=== PATIENT | male | born 1970 | race Caucasian/White ===

== ENCOUNTER 2020-04-07 07:06 | Outpatient (REF) | payer OTHER, SELFPAY ==
[2020-04-07 10:54] LABS: MANUAL DIFF FLAG NO
[2020-04-07 10:59] LABS: Basophils Absolute Auto 0.1 X10*3/uL (0.0-0.2); Basophils Percent Auto 0.9 % (0-2); Eosinophils Absolute Auto 0.2 X10*3/uL (0.0-0.4); Eosinophils Percent Auto 2.7 % (0-4); Hematocrit 47.9 % (42-52); Hemoglobin 15.8 g/dl (14.0-18.0); Imm Gran Abs Auto 0.02 X10*3/uL (0.00-0.03); Imm Gran Pct Auto 0.3 % (0.0-0.4); Lymphocytes Absolute Auto 1.6 X10*3/uL (1.2-4.9); Mean Corpuscular Hemoglobin 31.6 pg (27.0-33.0); Mean Corpuscular Volume 95.8 fL (80-98); Mean Platelet Volume 11.7 fL (9.4-12.4); Monocytes Absolute Auto 0.7 X10*3/uL (0.1-1.2); Monocytes Percent Auto 8.9 % (2-11); Neutrophils Absolute Auto 4.8 X10*3/uL (2.0-8.3); Neutrophils Percent Auto 65.2 % (45-73); Platelet Count 228 X10*3/uL (160-400); Red Cell Distribution Width 12.5 % (11.0-16.0); White Blood Count 7.4 X10*3/uL (4.8-10.8)
[2020-04-07 11:33] LABS: Troponin-I High Sensitivity < 3.5 ng/L (<3.5-35.0)
[2020-04-07 13:03] LABS: Alanine Aminotransferase 99 U/L (0-40); Albumin Level 4.6 g/dL (3.5-5.0); Alkaline Phosphatase 49 U/L (39-117); Anion Gap 16 (12-20); Aspartate Amino Transferase 41 U/L (5-37); Bilirubin Total 0.4 mg/dL (0.0-1.0); Blood Urea Nitrogen 19 mg/dL (9-16); Calcium 9.8 mg/dL (8.4-10.2); Carbon Dioxide 26 mmol/L (22-29); Chloride 104 mmol/L (96-108); Cholesterol 269 mg/dL; Estimated Glomerular Filt Rate > 60; Glucose Fasting 111 mg/dL (60-99); HDL Cholesterol 33 mg/dL; LDL Cholesterol Calculated 162 mg/dl; Potassium 4.9 mmol/l (3.3-5.1); Sodium 141 mmol/L (135-145); Total Protein 7.6 g/dL (6.5-8.0); Triglycerides 372 mg/dL
[2020-04-07 13:23] LABS: TSH reflex Free T4 1.63 mIU/mL (0.32-4.0)
== END 2020-04-07 07:07 | disposition home or self-care (01) ==
LOC: HO.WFDLDS 07:06
PROVIDERS: PCP Family Medicine; Visit Provider Family Medicine
DX: I10 Essential (primary) hypertension (principal); Z00.00 Encounter for general adult medical examination without abnormal findings
CPT/HCPCS: 36415; 80053; 80061; 84443; 84484; 85025

== ENCOUNTER → 2020-04-26 07:50 | Outpatient (REF) | payer OTHER, SELFPAY ==
--- NOTE | 2020-04-26 07:53 | CA_ITS ---
Acquisition Time: 2020-04-26 09:05:47 Total Exercise Time: 00:09:19 Test Indications: Screening for CAD Medications: ATENOLOL AMLODIPINE Protocol: DEVORA Max HR: 139 BPM 81% of Pred: 170 BPM Max BP: 174/078 mmHG Max Work Load: 10.6 METS Exercise stress test using Devora protocol, total of 9 min 19 sec. METS 10.6, TAPHR up to 81 % . HR attenuated as pt took betablocker this morning. Tolerated well, denies any anginal sx. EKG without any arrhythmias, no ischemic changes, however suboptimal test d/t HR attenuated by betablocker. Strong family history of HD. Brother had CAD with stents at age 46. Pt's father had valve replaced and of [place] 18 years ago. Normotensive response to exercise. Test reviewed with Dr. Spears. Referred By: Markos Wilkinson Overread By: Bert Wilburn
== END ==
LOC: HO.CARD 07:50
PROVIDERS: PCP Family Medicine; Visit Provider Family Medicine
DX: R07.9 Chest pain, unspecified (principal); Z82.49 Family history of ischemic heart disease and other diseases of the circulatory system
CPT/HCPCS: 93017

== ENCOUNTER → 2020-05-19 13:52 | Outpatient (BNVA) | payer OTHER, SELFPAY | PROVIDERS: PCP Family Medicine; Visit Provider Nurse Practitioner Family | DX: Z12.11 Encounter for screening for malignant neoplasm of colon (principal) | CPT/HCPCS: Q3014 ==

== ENCOUNTER → 2020-06-30 09:05 | Outpatient (BNVA) | payer OTHER, SELFPAY | PROVIDERS: PCP Family Medicine; Visit Provider Internal Medicine Cardiovascular Disease | DX: Z01.810 Encounter for preprocedural cardiovascular examination (principal); R07.9 Chest pain, unspecified; I10 Essential (primary) hypertension | CPT/HCPCS: 93005; 99202 ==

== ENCOUNTER 2020-07-20 06:11 | Day surgery (SDC) | payer OTHER, SELFPAY ==
[2020-07-13 14:54] VITALS: BMI 36.9
--- NOTE | 2020-07-19 09:28 | HO.ANESPROP2 ---
Documented by User: Joann Locke 07/19/20 09:33 HPI - Anesthesia Eval Consult details Narrative: 50yo M for Colonoscopy Cardiac cleared at low to intermed (Echo pending but ok to proceed with colonoscopy) [facility] Active Problems Active Problems: All Active Problems (Updated 07/13/20 @ 14:52 by Pamela Arevalo) Hypertension (Acute) Laboratory examination ordered as part of a routine general medical examination (Acute) FHx: early [place] (Acute) Headache (Acute) Essential hypertension (Acute) Chest pain (Acute) Mixed hyperlipidemia (Acute) Elevated liver transaminase level (Acute) Pre-diabetes (Acute) Screening for colon cancer (Acute) Screening for prostate cancer (Acute) Adult general medical exam (Acute) Abnormal stress test (Acute) Preoperative cardiovascular examination (Acute) Past Medical History Medical History Chest pain Essential hypertension Hx of concussion Hypertension Mild heartburn Mixed hyperlipidemia Family History Family History Father History of heart attack Mother Hx of breast cancer Brother Hx of skin cancer, basal cell Surgical History Surgical History H/O adenoidectomy Social History Social History Alcohol intake: current Alcohol intake frequency: a few times a week Alcohol type: beer and wine Smoking Status: Former smoker Smoking Quit Date: 1999 Use of substances other than those prescribed or required for medical reasons: No Advance Directives: No Advance Directives Information Provided: No Advance Directives on File: No Meds Allergies Allergy/AdvReac Type Severity Reaction Status Date / Time No Known Allergies Allergy Verified 03/31/20 16:33 Home Medications Medication Instructions Recorded Confirmed Last Taken Type aspirin 81 mg tablet,delayed 81 mg PO DAILY 03/31/20 07/20/20 07/19/20 21:00 History release atenolol 25 mg tablet 25 mg PO DAILY tab 06/30/20 07/13/20 Unknown History calcium carbonate-mag hydroxid 2 tab PO Q6H PRN 07/13/20 07/13/20 Unknown History [Rolaids] Exam Exam Date and Time: July 19, 2020927 Height,Weight and Vital Signs: Height 6 ft 1 in Weight 127.006 kg Pertinent Lab Results Pertinent Lab Results: Laboratory Tests 04/07/20 04/07/20 07:20 07:20 WBC 7.4 Hgb 15.8 Hct 47.9 Plt Count 228 Sodium 141 Potassium 4.9 Chloride 104 Carbon Dioxide 26 BUN 19 H Creatinine 1.12 Narrative Narrative: Exercise Stress Test Protocol: AZAEL Max HR: 139 BPM 81% of Pred: 170 BPM Max BP: 174/078 mmHG Max Work Load: 10.6 METS Exercise stress test using Azael protocol, total of 9 min 19 sec. METS 10.6, TAPHR up to 81 % . HR attenuated as pt took betablocker this morning. Tolerated well, denies any anginal sx. EKG without any arrhythmias, no ischemic changes, however suboptimal test d/t HR attenuated by betablocker. Strong family history of HD. Brother had CAD with stents at age 46. Pt's father had valve replaced and of [place] 18 years ago. Normotensive response to exercise. Test reviewed with Dr. Spears. EKG 06/2020 NSR 61/min, incomplete RBBB, QTc 418 msec Assessment and Plan Assessment Anesthesia Assessment: Chart Reviewed Documented by User: Edgard Chi 07/20/20 07:01 [facility] Past Medical History Medical History Chest pain Essential hypertension Hx of concussion Hypertension Mild heartburn Mixed hyperlipidemia Family History Family History Father History of heart attack Mother Hx of breast cancer Brother Hx of skin cancer, basal cell Surgical History Surgical History H/O adenoidectomy Social History Social History Alcohol intake: current Alcohol intake frequency: a few times a week Alcohol type: beer and wine Smoking Status: Former smoker Smoking Quit Date: 1999 Use of substances other than those prescribed or required for medical reasons: No Advance Directives: No Advance Directives Information Provided: No Advance Directives on File: No Meds Allergies Allergy/AdvReac Type Severity Reaction Status Date / Time No Known Allergies Allergy Verified 03/31/20 16:33 Home Medications Medication Instructions Recorded Confirmed Last Taken Type aspirin 81 mg tablet,delayed 81 mg PO DAILY 03/31/20 07/20/20 07/19/20 21:00 History release atenolol 25 mg tablet 25 mg PO DAILY tab 06/30/20 07/13/20 Unknown History calcium carbonate-mag hydroxid 2 tab PO Q6H PRN 07/13/20 07/13/20 Unknown History [Rolaids] Exam Airway Mallampati Class: III TM Dist: >3cm Neck ROM: Full Loose/Missing/Broken Teeth: No Heart: rrr+[id number] Lungs: cta b/l Assessment and Plan Assessment Anesthesia Assessment: Anesthesia Plan Discussed, PAT Visit and Chart Reviewed Final Anesthetic Review NPO: Yes ASA Class: II Final Preanesthetic Review: No Changes in Pt Med Stat, Meds/Allgs Chart Reviewed, Consent Obtained/Reviewed and Anes Risks/Benef Reviewed Patient Risk: Low Procedure Risk: Low Assessment/Block/Sedation in SS: Assess/Block/Sedation-SS Anesthetic Plan Anesthetic Plan: MAC: and Agree w/ Assess. and Plan Disposition: Standard PACU
[2020-07-20 06:43] VITALS: BP 141/97; PULSE 69; RESP 16; TEMP 36.3; O2SAT 97
[2020-07-20] MEDS: Lactated Ringers 1,000 ML 100 ML IVCONT (07:37)
--- NOTE | 2020-07-20 07:47 | MHC.SHP ---
Pre-Procedural Eval Section B Chief Complaint: screening Details of Present Illness: Colon cancer screening Hypertension recent eval cardiology for atypical chest pain Relevant Family History (Specify if Yes): No Relevant Social History: None Present Medications: see Short Stay Collaborative assessment Medical History: Significant History (Hypertension, Obesity) History of Previous Operations: No relevant previous surgery Allergies: Allergies Allergy/AdvReac Type Severity Reaction Status Date / Time No Known Allergies Allergy Verified 03/31/20 16:33 Review of Systems Sugical H&P ROS: Negative: Constitution, Respiratory, Gastrointestinal and Musculoskeletal and Yes, Specify: Cardiovascular Exam Surgical H&P Exam: Normal: HEENT, Normal: Heart, Normal: Extremities and Normal: Abdomen Plan I have reviewed the history and physical and performed a pertinent physical examination on my patient. No changes have occurred unless specified.yes
--- NOTE | 2020-07-20 08:29 | PM.OP ---
Brief Operative Note Date of Service: 07/20/20 Pre-op diagnosis: Colon cancer screening --non high risk Post-op diagnosis: other (Diverticulosis) Procedure: Colonoscopy Implants: NONE Surgeon: Betsy Degroot MD Anesthesia: MAC (CHARLES Cruz Saviri, MD) Estimated blood loss (mL): 0 Pathology: none sent Condition: stable Disposition: PACU
[2020-07-20 08:31] VITALS: BP 119/81; PULSE 66; RESP 16; TEMP 36.7; O2SAT 98
[2020-07-20 08:46] VITALS: BP 120/88; PULSE 68; RESP 16; TEMP 36.7; O2SAT 96
--- NOTE | 2020-07-20 15:56 | W.PM.OPN ---
Operative Note Operative Note Date of Service: 07/20/20 Narrative: Pre-op diagnosis: Colon cancer screening --non high risk Post-op diagnosis: other (Diverticulosis) Procedure: Colonoscopy Implants: NONE Surgeon: Betsy Degroot MD Anesthesia: MAC (Cuff,CHARLES, MD Arti) FINDINGS: DANDRE: Prostate normal, sphincter tone adequate Adult slim colonoscope was introduced without difficulty advanced through sigmoid colon with some Diverticulosis noted. In the early descending colon, noted a 2-3mm obizm-[id number]-[id number] with cold biopsy forceps. Scope continued to be advanced. Once in the midtransverse colon, gentle extrinsic abdominal pressure was applied and scope easily entered ascending colon and then the cecum. Appendiceal orifice and ileocecal valve were well seen. Slow withdrawal of the scope, good rotational views no additional lesions were seen. ARV was clear. Estimated blood loss (mL): 0 Pathology: none sent Condition: stable Disposition: PACU PLAN: Repeat colon cancer screening will be 5 years with TA.
== END 2020-07-20 09:19 | disposition home or self-care (01) ==
PROVIDERS: PCP Family Medicine; Visit Provider Internal Medicine Gastroenterology
PROC: 0DJD8ZZ Inspection of Lower Intestinal Tract, Via Natural or Artificial Opening Endoscopic (ICD-10-PCS; CPT 45378; principal; 2020-07-20 07:30)
DX: Z12.11 Encounter for screening for malignant neoplasm of colon (principal); K63.5 Polyp of colon; K57.30 Diverticulosis of large intestine without perforation or abscess without bleeding; I10 Essential (primary) hypertension; Z79.82 Long term (current) use of aspirin; Z79.899 Other long term (current) drug therapy; Z82.49 Family history of ischemic heart disease and other diseases of the circulatory system; Z87.891 Personal history of nicotine dependence
CPT/HCPCS: 45380

== ENCOUNTER → 2020-08-06 10:13 | Outpatient (REF) | payer SELFPAY ==
--- NOTE | 2020-08-06 10:17 | CA_ITS ---
Transthoracic Echocardiogram Patient (Last, First, Middle): Darrius Catherine, Gender: Male Date of : 1970 Age: 50 Procedure Date: 08/06/2020 Procedure Type: Transthoracic Echocardiogram Location: OP Height: 185.42 cm Weight: 127.01 kg BSA: 2.48 m2 Heart Rate: bpm BP: 145 / 90 mmHg Manufacturing Development Engineer: Referring MD: Chris Avilez MD Symptoms: I10 - Essential (primary) hypertension Study Quality: Good ECG Rhythm: Sinus Conclusions: - The left ventricular systolic function is normal. The visually estimated ejection fraction is between 65-70%. - Mild basal septal hypertrophy. - No obvious valvular pathology seen on this study. Findings Left Ventricle Normal left ventricular cavity size. There is normal left ventricular wall thickness. The left ventricular systolic function is normal. The visually estimated ejection fraction is between 65-70%. There is no evidence of regional wall motion abnormalities. Mild basal septal hypertrophy. Right Ventricle Normal right ventricular cavity size and systolic function. Atria The left atrium is normal in size. The right atrium is normal in size. Aortic Valve There is a normal trileaflet aortic valve. There is no aortic valve stenosis. There is no aortic valve regurgitation. Mitral Valve The mitral valve appears normal. There is trace mitral valve regurgitation. There is no mitral valve stenosis. Pulmonic Valve The pulmonic valve was not well visualized. Tricuspid Valve Normal tricuspid valve structure. There is trace tricuspid valve regurgitation. The pulmonary artery systolic pressure is normal. Great Vessels The aortic annulus, sinuses of valsalva, asc aorta, and aortic arch are normal in size. Venous The inferior vena cava is normal in size and collapses greater than 50% with inspiration. Pericardium/Pleural There is no evidence of pericardial effusion. Prior Study Comparison No prior study available for comparison. Recommendations, Care & Conclusions No obvious valvular pathology seen on this study. Measurements 2D Linear Measurements RVIDd: 3.69 RVIDd Index: 1.49 IVSd: 1.08 0.6-0.9/0.6-1.0 cm LVIDd: 5.16 3.9-5.3/4.2-5.9 cm LVIDd Index: 2.08 2.4-3.2/2.2-3.1 cm/m2 LVIDs: 3.67 2.0-3.6 cm LVPWd: 0.99 0.7-1.1 cm Ao Root: 2.60 2.1-3.5 cm LA Diam: 4.80 2.7-3.8/3.0-4.0 cm LAIDs Index: 1.94 1.5-2.3 cm/m2 LV Mass: 250.49 67-162/88-224 g LV Mass Index: 101.01 43-95/49-115 g/m2 LVOT Diam: 2.10 3.0+(-)1.3 cm 2D Systolic Function EF 4C: 62.50 >55% EF 2C: 68.70 >55% EF BiP: 65.40 >55% Mitral Valve MV Pk E: 0.67 MV PK A: 0.81 MV Decel Time: 211.00 E/A: 0.80 E'Lateral: 5.61 E'Medial: 7.45 E/E' Med: 8.90 E/E' Lat: 11.90 PHT: 62.00 MVA PHT: 3.55 Decel Swift: 3.15 Aortic Valve AoV Pk Ryne: 1.62 AoV Mn Ryne: 1.16 AoV VTI: 0.28 AoV Pk Grad: 10.00 Aov Mn Grad: 6.00 ROSA Cont.VTI: 2.77 LVOT LVOT Pk Ryne: 1.25 LVOT Mn Ryne: 0.94 LVOT VTI: 0.23 LVOT Pk Grad: 6.00 LVOT Mn Grad: 4.00 LVOT Diam: 2.10 LVOT Area: 3.46 Diastolic Function MV Pk E: 0.67 MV Pk A: 0.81 E/A: 0.80 E'Medial: 7.45 E/E' Med: 8.90 E' Laterial: 5.61 E/E' Lat: 11.90 Tricuspid Valve TR Pk Ryne: 2.16 TR Pk Grad: 19.00 RA Press: 3.00 RVSP: 22.00 Great Vessels Aorta Ao Root-2D: 2.60 2.0-3.7 cm Ao Asc: 2.80 2.1-3.4 cm Ao Arch: 3.00 Updated in Other Vendor System with Status of Final Godwin Spears MD electronically signed on 08/07/2020 1:17:23 PM with status of Final
== END ==
LOC: HO.CARD 10:13
PROVIDERS: Visit Provider Internal Medicine Cardiovascular Disease
DX: I10 Essential (primary) hypertension (principal)
CPT/HCPCS: 93306

== ENCOUNTER 2023-03-20 10:46 | Outpatient (AMB) | payer OTHER, SELFPAY ==
[2023-03-20 10:50] VITALS: BP 180/100; PULSE 85; RESP 13; O2SAT 96; BMI 35.1
--- NOTE | 2023-03-20 10:50 | MHC.PC.OV ---
Vital Signs 03/20/23 10:50 Height 6 ft 1 in Weight 266 lb 6 oz BMI 35.1 BP 180/100 H Blood Pressure Location Lt brachial Position Sitting Respiration 13 Pulse 85 Pulse Source Pulse Oximeter Pulse Oximetry (%) 96 Oxygen Delivery Method Room Air Intake Visit Reasons: re est care/ pre op Intake Note: Patient is here to re-establish care and to obtain pre-op clearance for cataract surgery with Dr. Stan Murray. Patient is due to have this surgery April 11, 2023. Patient reports no other concerns at this time. Medication list is 2 years old. Brand Recorder Required: No Accompanied by: Self / Same As Patient Allergies No Known Allergies Allergy (Verified 03/20/23 10:58) Tobacco use date assessed: 03/20/23 Dental Screening Dental Screen Date: 03/20/23 Did you have a dental visit in the last 12 months?: Yes Did you have a dental problem in the last 6 months where you did not have access to dental care?: No Was dental information given to patient?: Patient has dentist HPI re est care/ pre op HPI Details New patient/Re-Establish Care Prior PCP:?Ashlie Last office visit/CPE: Acute issue(s): Pre-diabetes PMHx: Hypertension, Pre-diabetes SurgHx: FHx: Father: Early [place]. Brother: Stents SocHx: Nonsmoker, No Drugs, EtOH 3 days a week x 3 each night. \ Patient?presents?for?preoperative?clearance?prior?to??cataract?surgery Procedure: Date:??04/11/2023 Surgeon:?? Blood?pressure?today?180/100.??He?had?been?on?atenolol?and?amlodipine?but?is?no?longer?taking?these. Family?history?of?early?[place]. History?of?pre?diabetes. A1c?today:?6.0%. HPI Comments History of Present Illness Details Documentation assistance for Markos Wilkinson MD, was provided by Dagoberto Barnett,? River Guide on 03/20/2023 11:10 AM EST. I, Dr. Wilkinson, have read, observed, and verified documentation.? [facility] Medical History (Updated 03/20/23 @ 11:10 by Dagoberto Barnett) Mixed hyperlipidemia Hx of concussion Mild heartburn Chest pain Essential hypertension Hypertension Surgical History H/O adenoidectomy Family History Father History of heart attack Mother Hx of breast cancer Brother Hx of skin cancer, basal cell (Updated 03/20/23 @ 11:02 by Angelita Henderson CMA) Household Members: Spouse and Children Housing: House Alcohol intake: current Alcohol intake frequency: a few times a week Alcohol type: beer and wine Patient Tobacco Use Status: Current someday Tobacco user (occassionally ) Tobacco use type: Cigar e-Cigarette/Vaping Use: Never Used Use of substances other than those prescribed or required for medical reasons: No Have you been hit, kicked, punched, or otherwise hurt by someone within the past year? If so, by whom?: No Do you feel safe in your current relationship?: Yes Is there a partner from a previous relationship who is making you feel unsafe now?: No Are you made to feel afraid or neglected: No service: No Current occupational status: employed Current occupation: [employer] Cognitive needs: No Hearing needs: No Vision needs: Yes (Cataract Surgery ) Review of Systems Const Denies chills, Denies fatigue, Denies fever(s), Denies headache(s) and Denies weakness ENT Denies dizziness and Denies headache(s) Card Denies chest pain, Denies lightheadedness, Denies dyspnea and Denies other (Palpitations) Resp Denies cough, Denies dyspnea, Denies wheezing and Denies other ( shortness of breath) Musc Denies numbness and Denies tingling Neuro Denies dizziness, Denies headache(s), Denies numbness, Denies tingling, Denies paresthesias and Denies weakness Psych Denies anxiety and Denies depression Endo Denies fatigue Aller/Immun Denies wheezing Physical exam (Primary Care) Vital Signs: Last Vital Signs Pulse 85 03/20/23 10:50 Resp 13 03/20/23 10:50 BP 180/100 H 03/20/23 10:50 Pulse Ox 96 03/20/23 10:50 Oxygen Delivery Method Room Air 03/20/23 10:50 BMI result Body Mass Index 35.1 Tobacco/Smoking Status: Tobacco use Status Tobacco use date assessed 03/20/23 03/20/23 11:02 Patient Tobacco Use Status Current someday Tobacco 03/20/23 11:02 Tobacco use type Cigar 03/20/23 11:02 e-Cigarette/Vaping Use Never Used 03/20/23 11:02 Const General: no acute distress and well developed Nutritional Appearance: well nourished Orientation/consciousness: patient oriented x3 HENMT Head: Yes normocephalic and Yes atraumatic Eyes General: appearance normal, both eyes and all related structures Pupils: Equal, round and reactive pupils present EOM: EOMs intact bilaterally Resp Effort & Inspection: normal respiratory effort Auscultation: clear to auscultation bilaterally Cardio Rate: regular rate Rhythm: regular rhythm Heart sounds: S1 normal heart sound present, S2 normal heart sound present, no gallops, no murmurs and no rubs Neuro General: patient oriented x3 and gait normal Cranial nerves: Yes Equal, round and reactive pupils present Psych Affect: normal affect Results AMB Hemoglobin A1c AMB Hemoglobin A1c 6.0 % Last Edit by Angelita Henderson CMA on 03/20/23 11:16 Assessment and Plan Assessment & Plan (1) Essential hypertension: Code(s): I10 - Essential (primary) hypertension Plan: BP?180/100.?Pressure?uncontrolled?of?medications.??Goal?is?less?than?140/90 EKG?shows?normal?sinus?rhythm,?normal?axis,?QRS?120?milliseconds;?nonspecific?intraventricular?conduction?delay,?no?ST-T-wave?changes. Restart?medications He?will?return?in?1?week?to?follow-up (2) Pre-diabetes: Code(s): R73.03 - Prediabetes Plan: A1c?has?crept?up?from?5.7-6.0.??Still?in?pre?diabetes?range?however Encouraged?additional?weight?loss,?exercise?and?a?diet?low?in?sugars?and?starches Will?follow (3) FHx: early [place]: Code(s): Z82.49 - Family history of ischemic heart disease and other diseases of the circulatory system Plan: Strong?family?history?of?early?[place] History?of?elevated?lipids Repeat?lipid?and?we?discussed?will?likely?need?a?statin?medication (4) Mixed hyperlipidemia: Code(s): E78.2 - Mixed hyperlipidemia Plan: As?above,?recheck?lipids Will?likely?need?a?statin (5) Laboratory exam ordered as part of routine general medical examination: Code(s): Z00.00 - Encounter for general adult medical examination without abnormal findings Plan: Check?labs Plan Patient?will?return?next?week?for?preoperative?clearance?and?follow-up?hypertension Orders: Orders Comprehensive [place]. Panel Fast Today Z00.00 - Encounter for general adult medical examination without abnormal findings Complete Blood Count Auto Diff Today Z00.00 - Encounter for general adult medical examination without abnormal findings Microalbumin, Random (w Creat) Today I10 - Essential (primary) hypertension TSH reflex Free T4 Today Z00.00 - Encounter for general adult medical examination without abnormal findings AMB EKG-In Office Today I10 - Essential (primary) hypertension Lipid Panel Today Z00.00 - Encounter for general adult medical examination without abnormal findings Prostate Specific Antigen Scr Today Z12.5 - Encounter for screening for malignant neoplasm of prostate UA and rflx microscopic Today Z00.00 - Encounter for general adult medical examination without abnormal findings AMB Hemoglobin A1c Today Z13.9 - Encounter for screening, unspecified Coding Level of Care Code New Pt Level 4 (11334) Diagnoses Essential hypertension I10 Pre-diabetes R73.03 FHx: early [place] Z82.49 Mixed hyperlipidemia E78.2 Laboratory exam ordered as part of routine general medical examination Z00.00
== END 2023-03-20 11:40 | disposition home or self-care (01) ==
PROVIDERS: PCP Family Medicine; Visit Provider Family Medicine
DX: I10 Essential (primary) hypertension (principal); R73.03 Prediabetes; Z82.49 Family history of ischemic heart disease and other diseases of the circulatory system; E78.2 Mixed hyperlipidemia
CPT/HCPCS: 83036; 93000; 99214

== ENCOUNTER 2023-03-27 13:12 | Outpatient (AMB) | payer OTHER, SELFPAY ==
[2023-03-27 13:28] VITALS: BP 138/80; PULSE 64; O2SAT 98; BMI 34.4
--- NOTE | 2023-03-27 13:28 | A.OFFPC_ITS ---
Vital Signs 03/27/23 13:28 Height 6 ft 1 in Weight 261 lb BMI 34.4 BP 138/80 Blood Pressure Location Lt brachial Position Sitting Pulse 64 Pulse Source Pulse Oximeter Pulse Oximetry (%) 98 Oxygen Delivery Method Room Air Intake Visit Reasons: pre-op & f/u htn Intake Note: Patient is here for pre-op and follow up on hypertension. Allergies No Known Allergies Allergy (Verified 03/27/23 13:31) Tobacco use date assessed: 03/27/23 HPI pre-op & f/u htn HPI Details Patient?presents?for?preoperative?clearance?prior?to??cataract?surgery Procedure: Date: 04/11/2023 Surgeon: Anesthesia: Local PMH: HTN, PreDM Cardiac?Hx: None Pulmonary?Hx: None Prior?Surgical?Complications: None Prior?Anesthesia?Complications: None Coag?Issues: None Functional?[place]: Walks 5 miles a day --- Date:?? Surgeon:?? Blood?pressure?today?180/100.??He?had?been?on?atenolol?and?amlodipine?but?is?no? longer?taking?these. Family?history?of?early?[place]. History?of?pre?diabetes. A1c?today:?6.0%. PFSH Medical History Mixed hyperlipidemia Hx of concussion Mild heartburn Chest pain Essential hypertension Hypertension Surgical History H/O adenoidectomy Family History Father History of heart attack Mother Hx of breast cancer Brother Hx of skin cancer, basal cell Social History Household Members: Spouse and Children Housing: House Alcohol intake: current Alcohol intake frequency: a few times a week Alcohol type: beer and wine Patient Tobacco Use Status: Current someday Tobacco user (occassionally ) Tobacco use type: Cigar e-Cigarette/Vaping Use: Never Used service: No Current occupational status: employed Current occupation: [employer] Cognitive needs: No Hearing needs: No Vision needs: Yes (Cataract Surgery ) Physical exam (Primary Care) Vital Signs: Last Vital Signs Pulse 64 03/27/23 13:28 BP 138/80 03/27/23 13:28 Pulse Ox 98 03/27/23 13:28 Oxygen Delivery Method Room Air 03/27/23 13:28 BMI result Body Mass Index 34.4 Tobacco/Smoking Status: Tobacco use Status Tobacco use date assessed 03/27/23 03/27/23 13:33 Patient Tobacco Use Status Current someday Tobacco ( 03/27/23 13:29 occassionally ) Tobacco use type Cigar 03/27/23 13:29 e-Cigarette/Vaping Use Never Used 03/27/23 13:29 Assessment and Plan Assessment & Plan (1) Pre-operative clearance: Code(s): Z01.818 - Encounter for other preprocedural examination Plan: 53-year-old?male?presents?for?preoperative?clearance?prior?to?cataract?surgery. No?prior?cardiac?disease?or?pulmonary?disease. History?of?hypertension?which?is?now?controlled. History?of?pre?diabetes?and?recent?A1c?is?6.0%. No?prior?complications?with?prior?surgeries?or?anesthesia. No?clotting?disorders. Very?good?functional?reserve. Low?risk?patient?for?low?risk?procedure ?no?contraindications?to?proceeding?with?proposed?procedure (2) Essential hypertension: Code(s): I10 - Essential (primary) hypertension Plan: Blood?pressure?now?controlled.??Goal?is?less?than?140/90 Continue?current?medications Continue?diet?low?in?salt/sodium,?exercise?and?weight?loss (3) Pre-diabetes: Code(s): R73.03 - Prediabetes Plan: Continue?weight?loss?and?work?at?a?diet?low?in?sugars?and?starches Coding Level of Care Code Est Pt Level 3 (62074) Diagnoses Pre-operative clearance Z01.818 Essential hypertension I10 Pre-diabetes R73.03
== END 2023-03-27 13:51 | disposition home or self-care (01) ==
PROVIDERS: PCP Family Medicine; Visit Provider Family Medicine
DX: Z01.818 Encounter for other preprocedural examination (principal); I10 Essential (primary) hypertension; R73.03 Prediabetes
CPT/HCPCS: 99213

== ENCOUNTER 2023-07-23 08:50 | Outpatient (REF) | payer OTHER, SELFPAY ==
[2023-07-23 11:43] LABS: MANUAL DIFF FLAG NO
[2023-07-23 12:04] LABS: Basophils Absolute Auto 0.1 X10*3/uL (0.0-0.2); Basophils Percent Auto 0.8 % (0-2); Eosinophils Absolute Auto 0.1 X10*3/uL (0.0-0.4); Eosinophils Percent Auto 1.2 % (0-4); Hematocrit 47.1 % (42.0-52.0); Hemoglobin 16.1 g/dl (14.0-18.0); Imm Gran Abs Auto 0.02 X10*3/uL (0.00-0.03); Imm Gran Pct Auto 0.3 % (0.0-0.4); Lymphocytes Absolute Auto 1.2 X10*3/uL (1.2-4.9); Lymphocytes Percent Auto 18.4 % (20-40); Mean Corpuscular HGB Conc 34.2 g/dl (31.0-36.0); Mean Corpuscular Hemoglobin 31.7 pg (27.0-33.0); Mean Corpuscular Volume 92.7 fL (80.0-98.0); Mean Platelet Volume 11.8 fL (9.4-12.4); Monocytes Absolute Auto 0.4 X10*3/uL (0.1-1.2); Monocytes Percent Auto 6.6 % (2-11); Neutrophils Absolute Auto 4.8 x10*3/uL (2.0-8.3); Neutrophils Percent Auto 72.7 % (45-73); Platelet Count 219 X10*3/uL (160-400); Red Blood Count 5.08 X10*6/uL (4.60-5.80); Red Cell Distribution Width 12.2 % (11.0-16.0); White Blood Count 6.6 X10*3/uL (4.8-10.8)
[2023-07-23 12:22] LABS: Appearance Urine Clear; Color Urine Yellow; Glucose Urine UA Negative (Negative); Leukocyte Esterase Urine Negative (Negative); Nitrite Urine Negative (Negative); Specific Gravity - Urine 1.015 (1.005-1.025); Urine Blood Negative (Negative); Urine Ketones Negative (Negative); Urine Protein Negative (Neg-Trace)
[2023-07-23 13:13] LABS: Prostate Specific Antigen Scr 0.39 ng/mL (<0.05-4.0)
[2023-07-23 13:30] LABS: Creatinine Urine 122.08 mg/dL; Microalbum/Creatinine Ratio Ur 15.5 ug/mg cr (<30)
[2023-07-23 14:01] LABS: Alanine Aminotransferase 20 U/L (0-40); Albumin Level 4.7 g/dL (3.5-5.0); Alkaline Phosphatase 64 U/L (39-117); Anion Gap 12 (12-20); Aspartate Amino Transferase 17 U/L (5-37); Bilirubin Total 0.7 mg/dL (0.0-1.0); Blood Urea Nitrogen 13 mg/dL (9-16); Calcium 10.1 mg/dL (8.4-10.2); Carbon Dioxide 28 mmol/L (22-29); Chloride 107 mmol/L (96-108); Cholesterol 237 mg/dL (<200); Estimated Glomerular Filt Rate > 60; Glucose Fasting 101 mg/dL (60-99); HDL Cholesterol 44 mg/dL (>40); LDL Cholesterol Calculated 163 mg/dL (<100); Potassium 4.2 mmol/L (3.3-5.1); Sodium 143 mmol/L (135-145); TSH reflex Free T4 1.27 uIU/mL (0.32-4.0); Total Protein 7.9 g/dL (6.5-8.0); Triglycerides 154 mg/dL (<150)
== END 2023-07-23 08:51 | disposition home or self-care (01) ==
LOC: HO.WFDLDS 08:50
PROVIDERS: Visit Provider Family Medicine
DX: Z00.00 Encounter for general adult medical examination without abnormal findings (principal); Z12.5 Encounter for screening for malignant neoplasm of prostate; I10 Essential (primary) hypertension
CPT/HCPCS: 36415; 80053; 80061; 81003; 82043; 82570; 84153; 84443; 85025

== ENCOUNTER 2023-08-30 08:32 | Outpatient (AMB) | payer OTHER, SELFPAY ==
[2023-08-30 08:43] VITALS: BP 136/80; PULSE 71; RESP 14; TEMP 36.4; O2SAT 99; BMI 33.4
--- NOTE | 2023-08-30 08:43 | MHC.PC.OV ---
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 Labs were drawn 07/23/23. Reviewed labs with pt. Elevated fasting glucose of 101. A1c 03/20/23 was 6.0%. Triglycerides 154. TC 237. LDL 163. HDL 44. Blood pressure today 136/80. He is on amlodipine 10mg, atenolol 25mg daily. HPI Comments History of Present Illness Details Documentation assistance for Markos Wilkinson MD, was provided by Dagoberto Barnett, [employer] on 08/30/2023 9:30 AM [place]. I, Dr. Wilkinson, have read, observed, and verified documentation. [facility] Medical History (Updated 08/30/23 @ 09:40 by Markos Wilkinson MD) Mixed hyperlipidemia Hx of concussion Mild heartburn Chest pain Essential hypertension Hypertension Surgical History H/O cataract removal with insertion of prosthetic lens H/O adenoidectomy Family History Father History of heart attack Mother Hx of breast cancer Brother Hx of skin cancer, basal cell Social History Household Members: Spouse and Children Housing: House Alcohol intake: current Alcohol intake frequency: a few times a week Alcohol type: beer and wine Patient Tobacco Use Status: Current someday Tobacco user (occassionally ) Tobacco use type: Cigar e-Cigarette/Vaping Use: Never Used service: No Current occupational status: employed Current occupation: [employer] Cognitive needs: No Hearing needs: No Vision needs: No (Cataract Surgery ) Physical exam (Primary Care) Vital Signs: Last Vital Signs Temp 97.6 F 08/30/23 08:43 Pulse 71 08/30/23 08:43 Resp 14 08/30/23 08:43 BP 136/80 08/30/23 08:43 Pulse Ox 99 08/30/23 08:43 Oxygen Delivery Method Room Air 08/30/23 08:43 BMI result Body Mass Index 33.4 Tobacco/Smoking Status: Tobacco use Status Tobacco use date assessed 08/30/23 08/30/23 08:51 Patient Tobacco Use Status Current someday Tobacco ( 08/30/23 08:43 occassionally ) Tobacco use type Cigar 08/30/23 08:43 e-Cigarette/Vaping Use Never Used 08/30/23 08:43 Assessment and Plan Assessment & Plan (1) Essential hypertension: Code(s): I10 - Essential (primary) hypertension Plan: Blood?pressure?is?controlled.??Goal?is?less?than?140/90 Continue?current?medication (2) Mixed hyperlipidemia: Code(s): E78.2 - Mixed hyperlipidemia Plan: LDL?cholesterol?is?too?high.??Goal?is?less?than?130 He?had?been?on?a?statin?medication?in?the?past Will?start?him?on?atorvastatin?20?mg?daily?and?we?can?recheck?this?at?a?subsequent?visit (3) Pre-diabetes: Code(s): R73.03 - Prediabetes Plan: Fasting?blood?sugar?was?101.??His?A1c?has?been?5.7?and?6.0%?in?the?past;?pre?diabetes He?has?been?losing?weight We?can?recheck?this?at?a?subsequent?visit (4) Ingrown hair: Code(s): L73.1 - Pseudofolliculitis barbae Plan: Patient?is?getting?some?infected?follow?goals?or?ingrown?hairs?on?his?chest Can?use?warm?compresses?and?also?advised?Hibiclens Some?of?these?have?resulted?in?keloids-see?below (5) Keloid: Code(s): L91.0 - Hypertrophic scar Plan: He?has?a?couple?of?keloid?scars?on?his?chest. Work?at?prevention?of?underlying?cause?as?above. Keloid?scars?should?shrink?somewhat?over time Medications: New atorvastatin 20 mg PO BEDTIME 90 days 90 tabs 2RF Coding Level of Care Code Est Pt Level 4 (89283) Diagnoses Essential hypertension I10 Mixed hyperlipidemia E78.2 Pre-diabetes R73.03 Ingrown hair L73.1 Keloid L91.0
== END 2023-08-30 09:46 | disposition home or self-care (01) ==
PROVIDERS: PCP Family Medicine; Visit Provider Family Medicine
DX: I10 Essential (primary) hypertension (principal); E78.2 Mixed hyperlipidemia; R73.03 Prediabetes; L73.1 Pseudofolliculitis barbae; L91.0 Hypertrophic scar
CPT/HCPCS: 99214